=== PATIENT | male | born 1940 | race Caucasian/White ===

== ENCOUNTER 2017-11-29 10:50 | Emergency (ER) | payer MEDICARE, OTHER ==
[~2017-11-29] VITALS: Ht 170.2 cm; Wt 88.5 kg
[~2017-11-29 10:50] MED LIST: ASPI81TA31 PO; BENA40TA2 PO; CARV25TA2 PO; CIPR500T5 PO; CLOP75TA15 PO; HYDR12.5 PO; POTA8TAB3 PO; ROSU20TA PO
--- NOTE | 2017-11-29 12:35 | NUR ---
MSE COM PLETED, PT D/C'D, ACI/RX GIVEN. PT AMBULATED W/O DIFF/TOOK ALL BELONGINGS.
[2017-11-29 15:47] VITALS: BP 118/68
== END 2017-11-29 15:48 | disposition home or self-care (01) ==
LOC: ER 10:50
DX: S20.212A Contusion of left front wall of thorax, initial encounter (principal); S60.222A Contusion of left hand, initial encounter; I25.10 Atherosclerotic heart disease of native coronary artery without angina pectoris; Z79.82 Long term (current) use of aspirin; Z95.0 Presence of cardiac pacemaker; Z95.1 Presence of aortocoronary bypass graft; Z98.890 Other specified postprocedural states; W18.30XA Fall on same level, unspecified, initial encounter; Y93.89 Activity, other specified; Y92.89 Other specified places as the place of occurrence of the external cause; Y99.8 Other external cause status
CPT/HCPCS: 71101; 73120; A4663

== ENCOUNTER 2021-10-27 15:25 | Inpatient (IN) | payer MEDICARE, OTHER ==
[~2021-10-27] VITALS: Ht 170.2 cm; Wt 90.7 kg
[~2021-10-27 15:25] MED LIST changes: -BENA40TA2 PO; +BENA40TA8 PO; -ROSU20TA PO; +ROSU20TA2 PO
[2021-10-27 20:32] LABS: ABG BASE EXCESS -3.4 mmol/L; ABG HCO3 19.4 mmol/L; ABG PCO2 28.9 mmHg (35.0-45.0); ABG PH 7.444 (7.350-7.450); ABG PO2 54.8 mmHg (75.0-100.0); ABG SITE RIGHT RADIAL; ABG TOTAL HEMOGLOBIN 14.2 G/dL (13.5-18.0); COHb 1.2 % (0.5-1.5); O2Hb 90.2 % (94.0-97.0)
[2021-10-27 20:50] LABS: HEMATOCRIT 39.5 % (36.7-47.1); MEAN CORPUSCULAR VOLUME 93.7 fL (73.0-96.2); PLATELET COUNT (AUTO) 196 K/uL (152-348)
[2021-10-27 20:51] LABS: CARBON DIOXIDE 25 mmol/L (21-32); CHLORIDE 96 mmol/L (98-107); CREATININE 1.4 mg/dL (0.6-1.3); GLUCOSE 244 mg/dL (74-106); POTASSIUM 3.8 mmol/L (3.5-5.1); UREA NITROGEN, BLOOD 15 mg/dL (7-18)
[2021-10-27] MEDS ORDERED: CEFTRIAXONE 1 G in IV DEXTROSE 5% 50 ML IV ONE (21:00)
[2021-10-27] MEDS ORDERED: AZITHROMYCIN IV 500 MG in IV DEXTROSE 5% 250 ML IV ONE (21:00)
[2021-10-27] MEDS ORDERED: DEXAMETHASONE SOD PHOSPHATE 4 MG INJ IV ONE (21:00)
[2021-10-27 21:04] LABS: ALANINE AMINOTRANSFERASE 24 U/L (16-63); ALKALINE PHOSPHATASE 75 U/L (50-136); ASPARTATE AMINOTRANSFERASE 33 U/L (15-37); BILIRUBIN,TOTAL 0.7 mg/dL (0.2-1.0); CREATINE KINASE, TOTAL 728 U/L (39-308); LACTATE DEHYDROGENASE 320 U/L (85-227); TOTAL PROTEIN, SERUM 8.1 g/dL (6.4-8.2)
[2021-10-27] MEDS ORDERED: METO-357 PO (21:19)
[2021-10-27] MEDS ORDERED: FERR325T28 PO (21:19)
[2021-10-27] MEDS ORDERED: SACU1TAB PO (21:19)
[2021-10-27] MEDS ORDERED: AZITHROMYCIN 500MG/ D5W 250ML IVPB **ER PYXIS ONLY IV ONE (21:37)
[2021-10-27] MEDS ORDERED: CEFTRIAXONE /D5W 50ML IVPB **ER PYXIS IV ONE ×2 (21:37→21:45)
[2021-10-27] MEDS ORDERED: MORPHINE SULFATE 2 MG/1 ML DISP.SYRIN IV PRN (21:45)
[2021-10-27] MEDS ORDERED: ALBUTEROL SULFATE 8 GM HFA.AER.AD IH PRN (21:45)
[2021-10-27] MEDS ORDERED: ONDANSETRON 4 MG/2 ML VIAL IV PRN (21:45)
[2021-10-27] MEDS ORDERED: ENOXAPARIN SODIUM 30 MG/0.3 ML DISP.SYRIN SUBCUT ONE (22:32)
[2021-10-27] MEDS ORDERED: ENOXAPARIN SODIUM 30 MG/0.3 ML DISP.SYRIN ONE (23:43)
[2021-10-28] MEDS ORDERED: ACETAMINOPHEN/CODEINE 300-30 MG TABLET PO ONE
[2021-10-28] MEDS: BENZONATATE 100 MG CAPSULE PO SCH ×4 (00:02→21:40)
[2021-10-28] MEDS ORDERED: BENZONATATE 100 MG CAPSULE ONE ×3 (00:08→21:42)
[2021-10-28] MEDS ORDERED: ACETAMINOPHEN/CODEINE 300-30 MG TABLET ONE (00:36)
[2021-10-28] MEDS: PANTOPRAZOLE SODIUM 40 MG TABLET.DR PO SCH (07:42)
[2021-10-28] MEDS ORDERED: CARVEDILOL 25 MG TABLET ONE ×2 (07:46→17:28)
[2021-10-28] MEDS ORDERED: AZITHROMYCIN 250 MG TABLET ONE (07:46)
[2021-10-28] MEDS ORDERED: PANTOPRAZOLE SODIUM 40 MG TABLET.DR PO ONE (07:47)
[2021-10-28] MEDS ORDERED: CLOPIDOGREL 75 MG TABLET ONE (07:47)
[2021-10-28] MEDS: CLOPIDOGREL 75 MG TABLET PO SCH (09:00)
[2021-10-28] MEDS: AZITHROMYCIN 250 MG TABLET PO SCH (09:00)
[2021-10-28] MEDS: CARVEDILOL 25 MG TABLET PO SCH ×2 (09:00→17:21)
[2021-10-28 11:19] LABS: HEMATOCRIT 39.7 % (36.7-47.1); MEAN CORPUSCULAR HEMOGLOBIN 32.5 uug (23.8-33.4); MEAN CORPUSCULAR VOLUME 94.6 fL (73.0-96.2); PLATELET COUNT (AUTO) 214 K/uL (152-348)
[2021-10-28 11:46] LABS: THYROID STIMULATING HORMONE 1.125 mIU/mL (0.358-3.740)
[2021-10-28 12:09] LABS: BILIRUBIN,TOTAL 0.5 mg/dL (0.2-1.0); CREATININE 1.3 mg/dL (0.6-1.3); MAGNESIUM 2.4 mg/dL (1.8-2.4); PHOSPHOROUS 3.3 mg/dL (2.5-4.9); POTASSIUM 3.9 mmol/L (3.5-5.1)
[2021-10-28] MEDS ORDERED: GUAIFENESIN/DEXTROMETHORPHAN 5 ML UDC PO PRN (13:15)
[2021-10-28] MEDS ORDERED: DEXAMETHASONE SOD PHOSPHATE 10 MG INJ IV SCH (13:15)
[2021-10-28] MEDS ORDERED: REMDESIVIR (CHARGED) 200 MG in IV NORMAL SALINE 210 ML IV ONE (14:00)
[2021-10-28] MEDS: ENTRESTO 24MG/26MG TABLET PO SCH (20:30)
[2021-10-28] MEDS ORDERED: ENOXAPARIN SODIUM 30 MG/0.3 ML DISP.SYRIN SUBCUT SCH (21:00)
[2021-10-28] MEDS ORDERED: DEXAMETHASONE SOD PHOSPHATE 10 MG INJ ONE (21:33)
[2021-10-28] MEDS ORDERED: CEFTRIAXONE /D5W 50ML IVPB **ER PYXIS IV ONE (21:33)
[2021-10-28] MEDS ORDERED: ATORVASTATIN 40 MG TABLET ONE (21:33)
[2021-10-28] MEDS ORDERED: ENOXAPARIN SODIUM 30 MG/0.3 ML DISP.SYRIN ONE (21:33)
[2021-10-28] MEDS ORDERED: DOCUSATE SODIUM 100 MG CAPSULE PO ONE (21:33)
[2021-10-28] MEDS: ATORVASTATIN 40 MG TABLET PO SCH (21:39)
[2021-10-28] MEDS: DOCUSATE SODIUM 100 MG CAPSULE PO SCH (21:39)
[2021-10-28] MEDS: DEXAMETHASONE SOD PHOSPHATE 10 MG INJ IV SCH (21:39)
[2021-10-28] MEDS: CEFTRIAXONE 1 G in IV DEXTROSE 5% 50 ML IV SCH (21:40)
[2021-10-29] MEDS: PANTOPRAZOLE SODIUM 40 MG TABLET.DR PO SCH (06:06)
[2021-10-29] MEDS: BENZONATATE 100 MG CAPSULE PO SCH ×3 (06:06→21:22)
[2021-10-29 07:48] LABS: HEMATOCRIT 34.6 % (36.7-47.1); MEAN CORPUSCULAR VOLUME 93.8 fL (73.0-96.2); PLATELET COUNT (AUTO) 213 K/uL (152-348)
[2021-10-29 08:10] LABS: ALANINE AMINOTRANSFERASE 21 U/L (16-63); ALKALINE PHOSPHATASE 74 U/L (50-136); ASPARTATE AMINOTRANSFERASE 32 U/L (15-37); BILIRUBIN,DIRECT 0.2 mg/dL (0.0-0.2); BILIRUBIN,TOTAL 0.4 mg/dL (0.2-1.0); CARBON DIOXIDE 28 mmol/L (21-32); CHLORIDE 98 mmol/L (98-107); CREATININE 1.5 mg/dL (0.6-1.3); GLUCOSE 305 mg/dL (74-106); POTASSIUM 4.8 mmol/L (3.5-5.1); TOTAL PROTEIN, SERUM 6.9 g/dL (6.4-8.2); UREA NITROGEN, BLOOD 31 mg/dL (7-18)
[2021-10-29 08:35] VITALS: BP 100/54
[2021-10-29] MEDS: AZITHROMYCIN 250 MG TABLET PO SCH (11:10)
[2021-10-29] MEDS: CLOPIDOGREL 75 MG TABLET PO SCH (11:10)
[2021-10-29] MEDS: ENTRESTO 24MG/26MG TABLET PO SCH ×2 (11:11→16:39)
[2021-10-29] MEDS: CARVEDILOL 25 MG TABLET PO SCH ×2 (11:11→16:39)
[2021-10-29 12:46] VITALS: BP 100/52
[2021-10-29] MEDS ORDERED: IV NORMAL SALINE 500 ML BAG IV ONE (14:00)
[2021-10-29] MEDS ORDERED: IV NORMAL SALINE 500 ML IV ONE (14:00)
[2021-10-29] MEDS ORDERED: DEXTROSE 50% 50 ML DISP.SYRIN IV PRN (14:00)
[2021-10-29] MEDS ORDERED: REMDESIVIR (CHARGED) 100 MG in IV NORMAL SALINE 100 ML IV SCH ×2 (14:00→19:00)
[2021-10-29] MEDS: BLOOD SUGAR DIAGNOSTIC 1 EACH STRIP VI SCH ×2 (16:08→21:22)
[2021-10-29] MEDS: INSULIN REGULAR, HUMAN 300 UNIT/3 ML VIAL SQ PRN ×2 (16:17→21:30)
[2021-10-29 18:00] VITALS: BP 97/54
[2021-10-29] MEDS: ATORVASTATIN 40 MG TABLET PO SCH (20:27)
[2021-10-29] MEDS: DOCUSATE SODIUM 100 MG CAPSULE PO SCH (20:27)
[2021-10-29] MEDS: HEPARIN SODIUM,PORCINE 5,000 UNITS/ML VIAL SQ SCH (20:28)
[2021-10-29] MEDS: REMDESIVIR (CHARGED) 100 MG in IV NORMAL SALINE 100 ML IV SCH (20:41)
[2021-10-29] MEDS: DEXAMETHASONE SOD PHOSPHATE 10 MG INJ IV SCH (20:41)
[2021-10-29] MEDS: CEFTRIAXONE 1 G in IV DEXTROSE 5% 50 ML IV SCH (21:42)
[2021-10-29 21:45] VITALS: BP 112/74
[2021-10-30 00:08] VITALS: BP 101/47
[2021-10-30 04:25] VITALS: BP 122/76
[2021-10-30] MEDS: BENZONATATE 100 MG CAPSULE PO SCH ×3 (06:13→21:59)
[2021-10-30] MEDS: PANTOPRAZOLE SODIUM 40 MG TABLET.DR PO SCH (06:13)
[2021-10-30] MEDS: BLOOD SUGAR DIAGNOSTIC 1 EACH STRIP VI SCH ×4 (06:32→21:08)
[2021-10-30 06:41] LABS: HEMATOCRIT 36.4 % (36.7-47.1); MEAN CORPUSCULAR HEMOGLOBIN 32.4 uug (23.8-33.4); MEAN CORPUSCULAR VOLUME 95.5 fL (73.0-96.2); PLATELET COUNT (AUTO) 213 K/uL (152-348)
[2021-10-30 07:06] LABS: BILIRUBIN,DIRECT 0.1 mg/dL (0.0-0.2); BILIRUBIN,TOTAL 0.3 mg/dL (0.2-1.0); CREATININE 1.1 mg/dL (0.6-1.3); MAGNESIUM 2.8 mg/dL (1.8-2.4); PHOSPHOROUS 3.3 mg/dL (2.5-4.9); POTASSIUM 4.6 mmol/L (3.5-5.1); TOTAL PROTEIN, SERUM 6.8 g/dL (6.4-8.2)
[2021-10-30] MEDS: ENTRESTO 24MG/26MG TABLET PO SCH ×3 (09:51→18:16)
[2021-10-30] MEDS: CARVEDILOL 25 MG TABLET PO SCH ×3 (09:51→18:26)
[2021-10-30] MEDS: AZITHROMYCIN 250 MG TABLET PO SCH (09:51)
[2021-10-30] MEDS: CLOPIDOGREL 75 MG TABLET PO SCH (09:52)
[2021-10-30] MEDS: HEPARIN SODIUM,PORCINE 5,000 UNITS/ML VIAL SQ SCH ×2 (09:53→21:06)
[2021-10-30 12:00] VITALS: BP 99/60
[2021-10-30 14:47] VITALS: BP 118/65
[2021-10-30 16:00] VITALS: BP 103/58
[2021-10-30] MEDS ORDERED: MAGNESIUM SULFATE 1 GM in IV DEXTROSE 5% 100 ML IV ONE (16:00)
[2021-10-30] MEDS: INSULIN REGULAR, HUMAN 300 UNIT/3 ML VIAL SQ PRN ×2 (16:08→21:07)
[2021-10-30] MEDS ORDERED: MAGNESIUM SULFATE/D5W 100 ML IV SCH (16:30)
[2021-10-30 16:49] LABS: CREATININE 1.1 mg/dL (0.6-1.3); MAGNESIUM 2.6 mg/dL (1.8-2.4); POTASSIUM 4.5 mmol/L (3.5-5.1)
[2021-10-30] MEDS: ACETAMINOPHEN 325 MG TABLET PO PRN (18:51)
[2021-10-30] MEDS: CEFTRIAXONE 1 G in IV DEXTROSE 5% 50 ML IV SCH (20:38)
[2021-10-30] MEDS: ATORVASTATIN 40 MG TABLET PO SCH (20:39)
[2021-10-30] MEDS: DEXAMETHASONE SOD PHOSPHATE 10 MG INJ IV SCH (20:39)
[2021-10-30] MEDS: DOCUSATE SODIUM 100 MG CAPSULE PO SCH (20:39)
[2021-10-30 20:51] VITALS: BP 108/69
[2021-10-30] MEDS ORDERED: INSULIN GLARGINE,HUM 300 UNITS/3 ML CARTRIDGE SQ SCH (21:00)
[2021-10-30] MEDS: REMDESIVIR (CHARGED) 100 MG in IV NORMAL SALINE 100 ML IV SCH (21:10)
[2021-10-31 00:10] VITALS: BP 116/62
[2021-10-31 04:38] VITALS: BP 135/84
[2021-10-31] MEDS: PANTOPRAZOLE SODIUM 40 MG TABLET.DR PO SCH (05:35)
[2021-10-31] MEDS: BENZONATATE 100 MG CAPSULE PO SCH ×3 (05:35→22:18)
[2021-10-31] MEDS: BLOOD SUGAR DIAGNOSTIC 1 EACH STRIP VI SCH ×4 (05:36→21:16)
[2021-10-31 07:05] LABS: HEMATOCRIT 36.8 % (36.7-47.1); MEAN CORPUSCULAR HEMOGLOBIN 32.1 uug (23.8-33.4); MEAN CORPUSCULAR VOLUME 93.5 fL (73.0-96.2); PLATELET COUNT (AUTO) 270 K/uL (152-348)
[2021-10-31 07:43] LABS: BILIRUBIN,DIRECT 0.2 mg/dL (0.0-0.2); BILIRUBIN,TOTAL 0.3 mg/dL (0.2-1.0); CREATININE 1.2 mg/dL (0.6-1.3); POTASSIUM 4.8 mmol/L (3.5-5.1)
[2021-10-31 08:41] LABS: MAGNESIUM 2.3 mg/dL (1.8-2.4)
[2021-10-31] MEDS: INSULIN REGULAR, HUMAN 300 UNIT/3 ML VIAL SQ PRN ×4 (08:58→21:20)
[2021-10-31] MEDS: CARVEDILOL 25 MG TABLET PO SCH ×2 (09:01→17:35)
[2021-10-31] MEDS: AZITHROMYCIN 250 MG TABLET PO SCH (09:01)
[2021-10-31] MEDS: ENTRESTO 24MG/26MG TABLET PO SCH ×2 (09:01→16:49)
[2021-10-31] MEDS: CLOPIDOGREL 75 MG TABLET PO SCH (09:02)
[2021-10-31] MEDS: HEPARIN SODIUM,PORCINE 5,000 UNITS/ML VIAL SQ SCH ×2 (09:02→21:10)
[2021-10-31 12:00] VITALS: BP 109/57
[2021-10-31 16:00] VITALS: BP 101/54
[2021-10-31 20:00] VITALS: BP 107/52
[2021-10-31] MEDS: REMDESIVIR (CHARGED) 100 MG in IV NORMAL SALINE 100 ML IV SCH (20:45)
[2021-10-31] MEDS: DOCUSATE SODIUM 100 MG CAPSULE PO SCH (20:46)
[2021-10-31] MEDS: ATORVASTATIN 40 MG TABLET PO SCH (20:46)
[2021-10-31] MEDS: DEXAMETHASONE SOD PHOSPHATE 10 MG INJ IV SCH (20:46)
[2021-10-31] MEDS: INSULIN GLARGINE,HUM 300 UNITS/3 ML CARTRIDGE SQ SCH (21:13)
[2021-10-31] MEDS: CEFTRIAXONE 1 G in IV DEXTROSE 5% 50 ML IV SCH (23:49)
[2021-11-01] VITALS: BP 105/72
[2021-11-01 04:00] VITALS: BP 133/58
[2021-11-01] MEDS: BENZONATATE 100 MG CAPSULE PO SCH ×3 (05:38→21:49)
[2021-11-01] MEDS: PANTOPRAZOLE SODIUM 40 MG TABLET.DR PO SCH (05:38)
[2021-11-01] MEDS: BLOOD SUGAR DIAGNOSTIC 1 EACH STRIP VI SCH ×4 (05:38→21:54)
[2021-11-01 07:39] LABS: HEMATOCRIT 39.5 % (36.7-47.1); MEAN CORPUSCULAR HEMOGLOBIN 31.7 uug (23.8-33.4); MEAN CORPUSCULAR VOLUME 94.2 fL (73.0-96.2); PLATELET COUNT (AUTO) 292 K/uL (152-348)
[2021-11-01 08:12] LABS: BILIRUBIN,DIRECT 0.1 mg/dL (0.0-0.2); BILIRUBIN,TOTAL 0.3 mg/dL (0.2-1.0); CREATININE 1.1 mg/dL (0.6-1.3); MAGNESIUM 2.3 mg/dL (1.8-2.4); POTASSIUM 4.4 mmol/L (3.5-5.1); TOTAL PROTEIN, SERUM 6.9 g/dL (6.4-8.2)
[2021-11-01] MEDS: HEPARIN SODIUM,PORCINE 5,000 UNITS/ML VIAL SQ SCH ×2 (08:57→21:50)
[2021-11-01] MEDS: INSULIN REGULAR, HUMAN 300 UNIT/3 ML VIAL SQ PRN ×4 (08:57→22:03)
[2021-11-01 09:05] VITALS: BP 129/59
[2021-11-01] MEDS: CARVEDILOL 25 MG TABLET PO SCH ×2 (09:17→16:45)
[2021-11-01] MEDS: CLOPIDOGREL 75 MG TABLET PO SCH (09:17)
[2021-11-01] MEDS: ENTRESTO 24MG/26MG TABLET PO SCH ×2 (09:17→16:45)
[2021-11-01] MEDS: GLUCERNA SHAKE 237 ML CAN PO SCH (09:17)
[2021-11-01 10:00] VITALS: BP 129/59
[2021-11-01 11:01] LABS: ABG BASE EXCESS -0.6 mmol/L; ABG HCO3 23.2 mmol/L; ABG PCO2 35.9 mmHg (35.0-45.0); ABG PH 7.429 (7.350-7.450); ABG PO2 68.8 mmHg (75.0-100.0); ABG SITE RIGHT RADIAL; ABG TOTAL HEMOGLOBIN 13.8 G/dL (13.5-18.0); COHb 0.5 % (0.5-1.5); MetHb 0.1 % (0.0-1.5)
[2021-11-01 12:00] VITALS: BP 136/92
[2021-11-01] MEDS ORDERED: TOCILIZUMAB 800 MG in IV NORMAL SALINE 60 ML IV ONE (18:00)
[2021-11-01] MEDS: REMDESIVIR (CHARGED) 100 MG in IV NORMAL SALINE 100 ML IV SCH (21:48)
[2021-11-01] MEDS: DOCUSATE SODIUM 100 MG CAPSULE PO SCH (21:49)
[2021-11-01] MEDS: DEXAMETHASONE SOD PHOSPHATE 10 MG INJ IV SCH (21:49)
[2021-11-01] MEDS: ATORVASTATIN 40 MG TABLET PO SCH (21:49)
[2021-11-01] MEDS: INSULIN GLARGINE,HUM 300 UNITS/3 ML CARTRIDGE SQ SCH (22:02)
[2021-11-01] MEDS ORDERED: BUMETANIDE 1 MG/4 ML VIAL IV ONE (22:30)
[2021-11-02] MEDS ORDERED: BUMETANIDE 1 MG/4 ML VIAL IV ONE (03:00)
[2021-11-02] MEDS: BENZONATATE 100 MG CAPSULE PO SCH ×2 (05:51→14:01)
[2021-11-02] MEDS: PANTOPRAZOLE SODIUM 40 MG TABLET.DR PO SCH (06:29)
[2021-11-02] MEDS: BLOOD SUGAR DIAGNOSTIC 1 EACH STRIP VI SCH ×2 (06:31→12:26)
[2021-11-02 07:26] LABS: HEMATOCRIT 44.1 % (36.7-47.1); MEAN CORPUSCULAR HEMOGLOBIN 31.6 uug (23.8-33.4); MEAN CORPUSCULAR VOLUME 93.7 fL (73.0-96.2); PLATELET COUNT (AUTO) 313 K/uL (152-348)
[2021-11-02 07:28] LABS: CREATININE 1.2 mg/dL (0.6-1.3); MAGNESIUM 2.1 mg/dL (1.8-2.4); PHOSPHOROUS 4.9 mg/dL (2.5-4.9); POTASSIUM 4.1 mmol/L (3.5-5.1)
[2021-11-02 07:59] LABS: FERRITIN 1262 ng/mL (26-388); LACTATE DEHYDROGENASE 362 U/L (85-227)
[2021-11-02] MEDS: INSULIN REGULAR, HUMAN 300 UNIT/3 ML VIAL SQ PRN ×2 (08:47→12:28)
[2021-11-02] MEDS: HEPARIN SODIUM,PORCINE 5,000 UNITS/ML VIAL SQ SCH (08:48)
[2021-11-02] MEDS: CLOPIDOGREL 75 MG TABLET PO SCH (08:54)
[2021-11-02] MEDS: ENTRESTO 24MG/26MG TABLET PO SCH (08:55)
[2021-11-02] MEDS: CARVEDILOL 25 MG TABLET PO SCH (08:56)
[2021-11-02] MEDS: GLUCERNA SHAKE 237 ML CAN PO SCH (08:56)
[2021-11-02 11:00] VITALS: BP 102/62
[2021-11-02] MEDS: ACETAMINOPHEN 325 MG TABLET PO PRN (12:42)
[2021-11-02] MEDS ORDERED: BUME0.5T6 PO (13:13)
[2021-11-02] MEDS ORDERED: POTA8TAB3 PO (13:13)
[2021-11-02] MEDS ORDERED: DEXA6TAB6 PO (13:13)
[2021-11-04 11:06] LABS: CRYPTOCOCCUS AB, SERUM Negative (Negative)
[2021-11-11 08:55] LABS: HISTOPLASMA AB 0
== END 2021-11-02 15:50 | disposition home or self-care (01) | DRG 871 ==
LOC: ER 15:29 → TRANSITION 22:09 → TELE3 10-29 02:26
PROVIDERS: ADMIT Nurse Practitioner Family; ATTEND Nurse Practitioner Acute Care
PROC: XW033E5 Introduction of Remdesivir Anti-infective into Peripheral Vein, Percutaneous Approach, New Technology Group 5 (ICD-10-PCS; principal; 2021-10-28)
PROC: 05HC33Z Insertion of Infusion Device into Left Basilic Vein, Percutaneous Approach (ICD-10-PCS; 2021-10-29)
PROC: 05HB33Z Insertion of Infusion Device into Right Basilic Vein, Percutaneous Approach (ICD-10-PCS; 2021-10-31)
PROC: XW043H5 Introduction of Tocilizumab into Central Vein, Percutaneous Approach, New Technology Group 5 (ICD-10-PCS; 2021-11-01)
DX: A41.89 Other specified sepsis (principal); U07.1 COVID-19; J12.82 Pneumonia due to coronavirus disease 2019; J96.01 Acute respiratory failure with hypoxia; I50.41 Acute combined systolic (congestive) and diastolic (congestive) heart failure; I13.0 Hypertensive heart and chronic kidney disease with heart failure and stage 1 through stage 4 chronic kidney disease, or unspecified chronic kidney disease; N17.9 Acute kidney failure, unspecified; E44.1 Mild protein-calorie malnutrition; E87.1 Hypo-osmolality and hyponatremia; I47.2 Ventricular tachycardia; Z95.810 Presence of automatic (implantable) cardiac defibrillator; N18.30 Chronic kidney disease, stage 3 unspecified; M89.9 Disorder of bone, unspecified; J20.8 Acute bronchitis due to other specified organisms; D64.9 Anemia, unspecified; E11.22 Type 2 diabetes mellitus with diabetic chronic kidney disease; E78.5 Hyperlipidemia, unspecified; E86.1 Hypovolemia; I25.10 Atherosclerotic heart disease of native coronary artery without angina pectoris; I25.2 Old myocardial infarction; I25.5 Ischemic cardiomyopathy; I49.3 Ventricular premature depolarization; Z79.02 Long term (current) use of antithrombotics/antiplatelets; Z79.82 Long term (current) use of aspirin; Z90.49 Acquired absence of other specified parts of digestive tract; Z95.1 Presence of aortocoronary bypass graft
CPT/HCPCS: 36415; 36600; 70030-TC; 71045; 83605; 83615; 83735; 84100; 84443; 85025; 85610; 85730; 86140; 86480; 87040; 87070; 87328; 87400; 93005; A4663; G0378; J0456; J0696; J1100; J1644; J1650; J1815; J3262; J3490; J3535; J7040; J7050; J7060; J7120; Q0144

== ENCOUNTER 2022-08-30 16:27 | Inpatient (IN) | payer MEDICARE, OTHER ==
[~2022-08-30] VITALS: Ht 167.6 cm; Wt 89.8 kg
[~2022-08-30 16:27] MED LIST changes: -ASPI81TA31 PO; -BENA40TA8 PO; +BUME0.5T6 PO; -CIPR500T5 PO; +DEXA6TAB6 PO; +FERR325T28 PO; -HYDR12.5 PO; +METO-357 PO; +SACU1TAB PO
--- NOTE | 2022-08-30 17:05 | NUR ---
Pt. walked to the ER c/o of increased SOB and bilateral LE edema. Pt. SOB increases upon physical movement. Hx of HTN, CAD, CHF. ERMD evaluated pt for MSE.
--- NOTE | 2022-08-30 17:06 | NUR ---
PT SEEN AND EVALUATED BY DR WOODS.
[2022-08-30] MEDS ORDERED: FUROSEMIDE 20 MG/2 ML VIAL IVP ONE (17:15)
[2022-08-30 17:40] LABS: HEMATOCRIT 44.8 % (36.7-47.1); MEAN CORPUSCULAR HEMOGLOBIN 29.5 uug (23.8-33.4); PLATELET COUNT (AUTO) 191 K/uL (152-348)
[2022-08-30 17:46] LABS: CARBON DIOXIDE 28 mmol/L (21-32); CHLORIDE 104 mmol/L (98-107); CREATININE 1.3 mg/dL (0.6-1.3); GLUCOSE 107 mg/dL (74-106); POTASSIUM 4.2 mmol/L (3.5-5.1); UREA NITROGEN, BLOOD 23 mg/dL (7-18)
[2022-08-30] MEDS ORDERED: FUROSEMIDE 20 MG/2 ML VIAL ONE (17:49)
[2022-08-30] MEDS ORDERED: METF-440 PO (18:23)
[2022-08-30] MEDS ORDERED: GLIP2.5T3 PO (18:23)
--- NOTE | 2022-08-30 19:17 | NUR ---
Report given to Coco LAZAR
--- NOTE | 2022-08-30 19:18 | NUR ---
Called third floor for pt bed. Spoke with Kassie, will call back.
[2022-08-30] MEDS: INSULIN REGULAR, HUMAN 300 UNIT/3 ML VIAL SQ PRN (21:00)
--- NOTE | 2022-08-30 21:57 | NUR ---
Called thrid floor to give report. Nurse said they would call back.
--- NOTE | 2022-08-30 22:20 | NUR ---
Called 3rd floor. Report given to Dulce LAZAR.
--- NOTE | 2022-08-30 23:01 | NUR ---
Pt. admitted to TELE room 310 , under care of Darrel 2ND PRESSMAN [place] List completed. Vazquez LAZAR aware of patient's arrival.
[2022-08-31] MEDS ORDERED: DEXTROSE 50% 50 ML DISP.SYRIN IV PRN (01:15)
[2022-08-31] MEDS ORDERED: ZOLPIDEM 5 MG TABLET PO PRN (01:15)
[2022-08-31] MEDS ORDERED: ACETAMINOPHEN 325 MG TABLET PO PRN (01:15)
[2022-08-31] MEDS ORDERED: ONDANSETRON 4 MG/2 ML VIAL IV PRN (01:15)
[2022-08-31] MEDS ORDERED: ENOXAPARIN SODIUM 40 MG/0.4 ML DISP.SYRIN SQ SCH (01:15)
[2022-08-31] MEDS ORDERED: REMEDY ESSENTIAL ZINC PASTE 113 GM TP PRN (01:15)
[2022-08-31] MEDS ORDERED: MAGNESIUM HYDROXIDE 30 ML LIQUID UDC PO PRN (01:15)
[2022-08-31] MEDS: BLOOD SUGAR DIAGNOSTIC 1 EACH STRIP VI SCH ×4 (07:20→21:00)
[2022-08-31] MEDS: INSULIN REGULAR, HUMAN 300 UNIT/3 ML VIAL SQ PRN ×5 (07:21→21:35)
--- NOTE | 2022-08-31 07:30 | NUR ---
RECEIVED PATIENT IN BED AWAKE ALERT AND ORIENTED PRIMARY LANGUAGE IS ARM[place] BUT UNDERSTANDS VIETNAMESE ON ROOM AIR WITH NO SHORTNESS OF BREATH RIGHT FOREARM WITH HL INTACT AMBULATORY WILL BE SEEN BY THE PHYSICAL THERAPY FOR EVAL CALL LIGHTS AND PERSONAL BELONGINGS ARE WITHIN EASY REACH WILL CONTINUE TO OBSERVE.
--- NOTE | 2022-08-31 07:31 | NUR ---
shift note; RECEIVED REPORT FROM ER NURSE ALLPHA RECEIVED TO THE UNIT A 81 Y/O MALE ALERT AND ORIENTED X4 PT IS FARSI SPEAKING UNABLE TO GET FULL REPORT FOR MY ADMISSION. PT HAS A RT AC 20GAUGE. SALINE LOCK. PT IS ON RA AND AMBULATORY. PT CAME TO ER HAVINGSOB FOR 2 WEEKS WITHOUT RELIEF. PT IS ON TELEMONITOR WHICH SHOWS NSR 70'SNO SIGNS OF DISTRESSED NOTED. PT HAS AN AICD PACEMAKER. PT BLOOD SUGAR THIS AM WAS 113 NO SIGNS OF DIABETIC REACTION AND NO COVERAGE REQUIRED.
--- NOTE | 2022-08-31 08:00 | NUR ---
PATIENT SEEN AND EXAMINED BY DR MEZA WITH NEW ORDERS.
[2022-08-31] MEDS: PANTOPRAZOLE SODIUM 40 MG VIAL IV SCH (08:47)
[2022-08-31] MEDS: FERROUS SULFATE 325 MG TABEC PO SCH (08:47)
[2022-08-31] MEDS: FUROSEMIDE 40 MG/4 ML VIAL IV SCH ×2 (08:47→21:20)
[2022-08-31] MEDS: CLOPIDOGREL 75 MG TABLET PO SCH (08:47)
[2022-08-31] MEDS: METOPROLOL SUCCINATE XL 50 MG TAB.SR.24H PO SCH (08:48)
[2022-08-31 08:58] LABS: HEMATOCRIT 44.9 % (36.7-47.1); MEAN CORPUSCULAR HEMOGLOBIN 29.9 uug (23.8-33.4); MEAN CORPUSCULAR VOLUME 89.3 fL (73.0-96.2); PLATELET COUNT (AUTO) 180 K/uL (152-348)
[2022-08-31] MEDS ORDERED: Medication Not On Formulary EA (Rosuvastatin Calcium (Crestor) 20 MG) PO SCH (09:00)
[2022-08-31] MEDS ORDERED: SACUBITRIL PO SCH (09:00)
[2022-08-31] MEDS ORDERED: VALSARTAN PO SCH (09:00)
--- NOTE | 2022-08-31 09:00 | NUR ---
PATIENT REASSIGNMENT CARE OF THIS PATIENT ENDORSED.
[2022-08-31 09:05] LABS: CARBON DIOXIDE 28 mmol/L (21-32); CHLORIDE 104 mmol/L (98-107); CREATININE 1.4 mg/dL (0.6-1.3); GLUCOSE 111 mg/dL (74-106); POTASSIUM 4.2 mmol/L (3.5-5.1); UREA NITROGEN, BLOOD 25 mg/dL (7-18)
[2022-08-31 09:12] LABS: ALANINE AMINOTRANSFERASE 29 U/L (16-63); ALKALINE PHOSPHATASE 54 U/L (50-136); ASPARTATE AMINOTRANSFERASE 37 U/L (15-37); BILIRUBIN,TOTAL 0.6 mg/dL (0.2-1.0); CHOLESTEROL 135 mg/dL (<200); HDL CHOLESTEROL 40 mg/dL (40-60); MAGNESIUM 1.7 mg/dL (1.8-2.4); PHOSPHOROUS 4.1 mg/dL (2.5-4.9); TOTAL PROTEIN, SERUM 7.1 g/dL (6.4-8.2); TRIGLYCERIDES 129 MG/DL (30-150)
[2022-08-31] MEDS: MAGNESIUM SULFATE/D5W 100 ML IV SCH ×2 (10:49→12:25)
[2022-08-31 11:25] VITALS: BP 150/101
[2022-08-31 13:36] LABS: THYROID STIMULATING HORMONE 3.104 mIU/mL (0.358-3.740)
[2022-08-31] MEDS ORDERED: LEVO100T10 PO (15:58)
[2022-08-31] MEDS ORDERED: SPIR1TAB PO (15:58)
[2022-08-31] MEDS ORDERED: RIVA10TA PO (15:58)
[2022-08-31] MEDS ORDERED: OMEP20CA15 PO (15:58)
[2022-08-31] MEDS ORDERED: ERGO50CA PO (15:58)
[2022-08-31 16:44] VITALS: BP 115/70
[2022-08-31] MEDS ORDERED: RIVAROXABAN 10 MG TABLET PO SCH (17:00)
[2022-08-31] MEDS: SACUBITRIL/VALSARTAN 24 MG-26 TABLET PO SCH (17:42)
[2022-08-31 20:00] VITALS: BP 114/74
[2022-08-31] MEDS ORDERED: ATORVASTATIN 40 MG TABLET PO SCH (21:00)
[2022-09-01] VITALS: BP 127/78
[2022-09-01 04:00] VITALS: BP 128/70
[2022-09-01 06:41] LABS: HEMATOCRIT 44.8 % (36.7-47.1); MEAN CORPUSCULAR HEMOGLOBIN 30.3 uug (23.8-33.4); MEAN CORPUSCULAR VOLUME 89.6 fL (73.0-96.2); PLATELET COUNT (AUTO) 176 K/uL (152-348)
--- NOTE | 2022-09-01 06:53 | NUR ---
No changes throughout the night. Refuses insulin MD discontinue accuchecks. report endorsed to oncoming RN>
[2022-09-01 07:00] LABS: CARBON DIOXIDE 29 mmol/L (21-32); CHLORIDE 99 mmol/L (98-107); CREATININE 1.4 mg/dL (0.6-1.3); GLUCOSE 118 mg/dL (74-106); MAGNESIUM 1.9 mg/dL (1.8-2.4); PHOSPHOROUS 4.8 mg/dL (2.5-4.9); POTASSIUM 3.3 mmol/L (3.5-5.1); UREA NITROGEN, BLOOD 28 mg/dL (7-18)
[2022-09-01] MEDS ORDERED: LEVOTHYROXINE SODIUM 100 MCG TABLET PO SCH (07:00)
[2022-09-01 08:05] VITALS: BP 128/70
[2022-09-01] MEDS: METOPROLOL SUCCINATE XL 50 MG TAB.SR.24H PO SCH (08:05)
[2022-09-01] MEDS: CLOPIDOGREL 75 MG TABLET PO SCH (08:05)
[2022-09-01] MEDS: FERROUS SULFATE 325 MG TABEC PO SCH (08:05)
[2022-09-01] MEDS: SACUBITRIL/VALSARTAN 24 MG-26 TABLET PO SCH (08:09)
[2022-09-01] MEDS: PANTOPRAZOLE SODIUM 40 MG VIAL IV SCH (08:11)
[2022-09-01] MEDS: FUROSEMIDE 40 MG/4 ML VIAL IV SCH (08:11)
[2022-09-01] MEDS ORDERED: POTASSIUM CHLORIDE 20 MEQ TAB.PRT.SR PO ONE (09:00)
[2022-09-01] MEDS ORDERED: FURO-151 PO (11:18)
--- NOTE | 2022-09-01 11:34 | NUR ---
dc orders received noted and carried out.dc instruction and education given to the pt and his family.dc heplock per md orders.pt left the facility via private car in stable condition
[2022-09-01] MEDS ORDERED: RIVAROXABAN 15 MG TABLET PO SCH (17:00)
[2022-09-02] MEDS ORDERED: PANTOPRAZOLE SODIUM 40 MG TABLET.DR PO SCH (07:00)
== END 2022-09-01 11:30 | disposition home or self-care (01) | DRG 291 ==
LOC: ER 16:29 → TELE3 17:20
PROVIDERS: ADMIT Internal Medicine; ATTEND Internal Medicine
DX: I13.0 Hypertensive heart and chronic kidney disease with heart failure and stage 1 through stage 4 chronic kidney disease, or unspecified chronic kidney disease (principal); I50.23 Acute on chronic systolic (congestive) heart failure; J96.21 Acute and chronic respiratory failure with hypoxia; N17.0 Acute kidney failure with tubular necrosis; I47.20 Ventricular tachycardia, unspecified; E11.22 Type 2 diabetes mellitus with diabetic chronic kidney disease; I25.10 Atherosclerotic heart disease of native coronary artery without angina pectoris; I25.5 Ischemic cardiomyopathy; E78.5 Hyperlipidemia, unspecified; N18.30 Chronic kidney disease, stage 3 unspecified; Z86.16 Personal history of COVID-19; Z87.01 Personal history of pneumonia (recurrent); Z95.1 Presence of aortocoronary bypass graft; Z95.810 Presence of automatic (implantable) cardiac defibrillator; I25.2 Old myocardial infarction; Z20.822 Contact with and (suspected) exposure to COVID-19; Z79.84 Long term (current) use of oral hypoglycemic drugs; Z98.61 Coronary angioplasty status
CPT/HCPCS: 36415; 71045; 83735; 84100; 84443; 84484; 85025; 93005; 93307; A4663; C9113; G0378; J1650; J1815; J1940; J3475

== ENCOUNTER 2023-11-30 11:53 | Emergency (ER) | payer MEDICARE, OTHER ==
[~2023-11-30] VITALS: Ht 167.6 cm; Wt 95.3 kg
[~2023-11-30 11:53] MED LIST changes: -BUME0.5T6 PO; -CARV25TA2 PO; -DEXA6TAB6 PO; +ERGO50CA PO; +FURO-151 PO; +GLIP2.5T3 PO; +LEVO100T10 PO; +OMEP20CA15 PO; -POTA8TAB3 PO; +RIVA10TA PO
[2023-11-30] MEDS ORDERED: NITROGLYCERIN OINT 1 GM PACKET TP ONE (13:02)
[2023-11-30] MEDS ORDERED: FUROSEMIDE 40 MG/4 ML VIAL ONE (13:02)
[2023-11-30 13:28] LABS: BASOPHILS # (AUTO) 0.1 K/UL (0.0-0.2); BASOPHILS % (AUTO) 0.8 % (0.0-2.0); EOSINOPHILS # (AUTO) 0.2 K/uL (0.0-0.7); EOSINOPHILS % (AUTO) 2.2 % (0.0-7.0); HEMATOCRIT 41.9 % (36.7-47.1); HEMOGLOBIN 14.1 g/dL (12.5-16.3); LYMPHOCYTES # (AUTO) 2.5 K/uL (0.8-4.8); LYMPHOCYTES % (AUTO) 26.5 % (20.5-51.5); MEAN CORPUSCULAR HEMOGLOBIN 30.6 uug (23.8-33.4); MEAN CORPUSCULAR HGB CONC 34 g/dL (32.5-36.3); MEAN CORPUSCULAR VOLUME 90.6 fL (73.0-96.2); MONOCYTES # (AUTO) 0.8 K/uL (0.1-1.30); MONOCYTES % (AUTO) 8.2 % (0.0-11.0); NEUTROPHILS % (AUTO) 62.3 % (38.5-71.5); PLATELET COUNT (AUTO) 148 K/uL (152-348); RED BLOOD CELL COUNT(AUTO) 4.62 MIL/uL (4.06-5.63); WHITE BLOOD COUNT (AUTO) 9.5 K/uL (3.6-10.2)
[2023-11-30] MEDS: NITROGLYCERIN OINT 1 GM PACKET TP ONE (13:36)
[2023-11-30] MEDS: FUROSEMIDE 20 MG/2 ML VIAL IVP ONE (13:36)
[2023-11-30 13:42] LABS: CALCIUM 8.9 mg/dL (8.5-10.1); CARBON DIOXIDE 25 mmol/L (21-32); CHLORIDE 102 mmol/L (98-107); CREATININE 1.6 mg/dL (0.6-1.3); GLUCOSE 123 mg/dL (74-106); POTASSIUM 3.9 mmol/L (3.5-5.1); SODIUM SERUM 137 mmol/L (136-145); UREA NITROGEN, BLOOD 16 mg/dL (7-18)
[2023-11-30 13:50] LABS: DIFFERENTIAL COMMENT 1
[2023-11-30 13:54] LABS: ALANINE AMINOTRANSFERASE 20 U/L (16-63); ALBUMIN 3.5 g/dL (3.4-5.0); ALKALINE PHOSPHATASE 80 U/L (50-136); ASPARTATE AMINOTRANSFERASE 14 U/L (15-37); BILIRUBIN,DIRECT 0.2 mg/dL (0.0-0.2); BILIRUBIN,TOTAL 0.5 mg/dL (0.2-1.0); NT-PRO BNP 3606 pg/mL (0-125); TOTAL PROTEIN, SERUM 7.8 g/dL (6.4-8.2)
[2023-11-30] MEDS ORDERED: FURO-151 PO ×2 (14:21→21:07)
[2023-11-30 15:11] VITALS: BP 123/76; TEMP 98.2; O2SAT 96
== END 2023-11-30 15:12 | disposition home or self-care (01) ==
LOC: ER 11:53
DX: I50.9 Heart failure, unspecified (principal); E78.5 Hyperlipidemia, unspecified; E11.22 Type 2 diabetes mellitus with diabetic chronic kidney disease; N18.9 Chronic kidney disease, unspecified; F41.9 Anxiety disorder, unspecified; Z98.890 Other specified postprocedural states; Z79.899 Other long term (current) drug therapy
CPT/HCPCS: 99291; 96374; 80076; 80048; 83880; 85025; 85730; 87040 ×2; 84484; 36415; 93005; 71045; 83605; J1940; A4606; A4663

== ENCOUNTER 2025-03-09 14:56 | Emergency (ER) | payer MEDICARE, OTHER ==
[~2025-03-09] VITALS: Ht 167.6 cm; Wt 95.3 kg
[2025-03-09 16:39] LABS: BASOPHILS # (AUTO) 0.1 K/UL (0.0-0.2); BASOPHILS % (AUTO) 1.1 % (0.0-2.0); EOSINOPHILS # (AUTO) 0.9 K/uL (0.0-0.7); EOSINOPHILS % (AUTO) 10.7 % (0.0-7.0); HEMATOCRIT 47.2 % (36.7-47.1); HEMOGLOBIN 15.7 g/dL (12.5-16.3); LYMPHOCYTES # (AUTO) 3.3 K/uL (0.8-4.8); LYMPHOCYTES % (AUTO) 38.2 % (20.5-51.5); MEAN CORPUSCULAR HEMOGLOBIN 30.5 uug (23.8-33.4); MEAN CORPUSCULAR HGB CONC 33 g/dL (32.5-36.3); MEAN CORPUSCULAR VOLUME 91.9 fL (73.0-96.2); MONOCYTES # (AUTO) 0.6 K/uL (0.1-1.30); MONOCYTES % (AUTO) 6.8 % (0.0-11.0); NEUTROPHILS # (AUTO) 3.7 K/uL (1.8-8.9); NEUTROPHILS % (AUTO) 43.2 % (38.5-71.5); PLATELET COUNT (AUTO) 186 K/uL (152-348); RED BLOOD CELL COUNT(AUTO) 5.14 MIL/uL (4.06-5.63); RED CELL DISTRIBUTION WIDTH 15.1 % (12.1-16.2); WHITE BLOOD COUNT (AUTO) 8.6 K/uL (3.6-10.2)
[2025-03-09 16:43] LABS: DIFFERENTIAL COMMENT 1
[2025-03-09 16:49] LABS: CALCIUM 8.9 mg/dL (8.5-10.1); CARBON DIOXIDE 23 mmol/L (21-32); CHLORIDE 104 mmol/L (98-107); CREATININE 1.8 mg/dL (0.6-1.3); GLUCOSE 153 mg/dL (74-106); POTASSIUM 4.4 mmol/L (3.5-5.1); SODIUM SERUM 139 mmol/L (136-145); UREA NITROGEN, BLOOD 33 mg/dL (7-18)
[2025-03-09 17:01] LABS: ALANINE AMINOTRANSFERASE 20 U/L (16-63); ALBUMIN 3.4 g/dL (3.4-5.0); ALKALINE PHOSPHATASE 70 U/L (50-136); ASPARTATE AMINOTRANSFERASE 15 U/L (15-37); BILIRUBIN,DIRECT 0.1 mg/dL (0.0-0.2); BILIRUBIN,TOTAL 0.2 mg/dL (0.2-1.0); NT-PRO BNP 592 pg/mL (0-125); TOTAL PROTEIN, SERUM 7.6 g/dL (6.4-8.2)
[2025-03-09] MEDS ORDERED: BENZ-13 PO (17:59)
[2025-03-09 18:18] VITALS: BP 113/70; O2SAT 98
== END 2025-03-09 18:19 | disposition home or self-care (01) ==
LOC: ER 14:56
DX: R05.9 Cough, unspecified (principal); R06.02 Shortness of breath; R25.1 Tremor, unspecified; R50.9 Fever, unspecified; E11.22 Type 2 diabetes mellitus with diabetic chronic kidney disease; E78.5 Hyperlipidemia, unspecified; F41.9 Anxiety disorder, unspecified; N18.9 Chronic kidney disease, unspecified; Z79.01 Long term (current) use of anticoagulants; Z79.02 Long term (current) use of antithrombotics/antiplatelets; Z79.84 Long term (current) use of oral hypoglycemic drugs; Z79.899 Other long term (current) drug therapy; Z88.7 Allergy status to serum and vaccine; Z95.1 Presence of aortocoronary bypass graft
CPT/HCPCS: 36415; 71045; 83735; 84484; 85025; A4606; A4663

== ENCOUNTER 2025-06-10 20:26 | Emergency (ER) | payer MEDICARE, OTHER ==
[~2025-06-10] VITALS: Ht 172.7 cm; Wt 95.3 kg
[~2025-06-10 20:26] MED LIST changes: +BENZ-13 PO
[2025-06-10] MEDS ORDERED: EMPA25TA PO (20:45)
[2025-06-10 21:00] VITALS: BP 109/69
[2025-06-10 21:34] LABS: PLATELET COUNT (AUTO) 179 K/uL (152-348); RED BLOOD CELL COUNT(AUTO) 4.75 MIL/uL (4.06-5.63); RED CELL DISTRIBUTION WIDTH 15.7 % (12.1-16.2); WHITE BLOOD COUNT (AUTO) 8.5 K/uL (3.6-10.2)
[2025-06-10 21:42] LABS: CREATININE 1.5 mg/dL (0.6-1.3); SODIUM SERUM 142 mmol/L (136-145); UREA NITROGEN, BLOOD 19 mg/dL (7-18)
[2025-06-10 21:48] LABS: ASPARTATE AMINOTRANSFERASE 5 U/L (15-37); TOTAL PROTEIN, SERUM 8.2 g/dL (6.4-8.2)
[2025-06-10 22:25] LABS: *BILIRUBIN,URIN NEGATIVE (NEGATIVE); *CLARITY,URINE SLIGHTLY CLOUDY (CLEAR); *COLOR,URINE YELLOW (YELLOW); *KETONES,URINE NEGATIVE (NEGATIVE); *PROTEIN,URINE NEGATIVE (NEGATIVE); *UROBILINOGEN,URINE 0.2 E.U./dl (NORMAL); LEUKOCYTE ESTERASE ,URINE 1+ (NEGATIVE); NITRITE, URINE POSITIVE (NEGATIVE); UGLUCOSE 3+ (NEGATIVE)
[2025-06-10 22:30] LABS: *BLOOD, URINE TRACE (NEGATIVE)
[2025-06-10] MEDS ORDERED: POTA-88 PO (22:36)
[2025-06-10] MEDS ORDERED: POTASSIUM CHLORIDE 20 MEQ TAB.PRT.SR ONE (22:36)
[2025-06-10] MEDS ORDERED: DOXY-326 PO (22:36)
[2025-06-10] MEDS: POTASSIUM CHLORIDE 20 MEQ TAB.PRT.SR PO ONE (22:38)
[2025-06-10 22:39] LABS: SQUAMOUS EPITHELIAL CELL,UR FEW /HPF (NONE SEEN)
[2025-06-10 22:52] VITALS: BP 106/72; TEMP 98.1; O2SAT 95
[2025-06-11] MEDS ORDERED: CEFD300C3 PO (01:39)
== END 2025-06-10 22:55 | disposition home or self-care (01) ==
LOC: ER 20:26
DX: R05.9 Cough, unspecified (principal); R06.01 Orthopnea; R06.00 Dyspnea, unspecified; R53.1 Weakness; E11.22 Type 2 diabetes mellitus with diabetic chronic kidney disease; I50.9 Heart failure, unspecified; N18.9 Chronic kidney disease, unspecified; J20.9 Acute bronchitis, unspecified; E78.5 Hyperlipidemia, unspecified; E87.6 Hypokalemia; F41.9 Anxiety disorder, unspecified; N39.0 Urinary tract infection, site not specified; R09.02 Hypoxemia; Z79.01 Long term (current) use of anticoagulants; Z79.02 Long term (current) use of antithrombotics/antiplatelets; Z79.84 Long term (current) use of oral hypoglycemic drugs; Z79.899 Other long term (current) drug therapy; Z86.16 Personal history of COVID-19; Z88.7 Allergy status to serum and vaccine; Z95.1 Presence of aortocoronary bypass graft; Z95.5 Presence of coronary angioplasty implant and graft; Z95.810 Presence of automatic (implantable) cardiac defibrillator; Z98.890 Other specified postprocedural states; Z20.822 Contact with and (suspected) exposure to COVID-19
CPT/HCPCS: 36415; 71045; 84484; 85025; 87086; A4606; A4663

== ENCOUNTER 2025-06-19 18:13 | Emergency (ER) | payer MEDICARE, OTHER ==
[~2025-06-19] VITALS: Ht 172.7 cm; Wt 95.3 kg
[~2025-06-19 18:13] MED LIST changes: -BENZ-13 PO; +CEFD300C3 PO; +DOXY-326 PO; +EMPA25TA PO; -GLIP2.5T3 PO; +POTA-88 PO
[2025-06-19 18:19] VITALS: BP 131/78
[2025-06-19] MEDS ORDERED: MUPI15CR TP (19:16)
[2025-06-19] MEDS ORDERED: CLOT15CR5 TP (19:16)
[2025-06-19 19:38] VITALS: BP 130/77; O2SAT 96
== END 2025-06-19 19:44 | disposition home or self-care (01) ==
LOC: ER 18:16
DX: N47.1 Phimosis (principal); N47.6 Balanoposthitis; N48.89 Other specified disorders of penis; I13.0 Hypertensive heart and chronic kidney disease with heart failure and stage 1 through stage 4 chronic kidney disease, or unspecified chronic kidney disease; E11.22 Type 2 diabetes mellitus with diabetic chronic kidney disease; I50.9 Heart failure, unspecified; N18.9 Chronic kidney disease, unspecified; I25.10 Atherosclerotic heart disease of native coronary artery without angina pectoris; E78.5 Hyperlipidemia, unspecified; I25.2 Old myocardial infarction; I42.9 Cardiomyopathy, unspecified; Z79.01 Long term (current) use of anticoagulants; Z79.02 Long term (current) use of antithrombotics/antiplatelets; Z79.84 Long term (current) use of oral hypoglycemic drugs; Z79.890 Hormone replacement therapy; Z79.899 Other long term (current) drug therapy; Z86.16 Personal history of COVID-19; Z87.01 Personal history of pneumonia (recurrent); Z88.7 Allergy status to serum and vaccine; Z95.0 Presence of cardiac pacemaker; Z95.1 Presence of aortocoronary bypass graft
CPT/HCPCS: A4606; A4663